=== PATIENT | female | born 1975 | race Caucasian/White ===

== ENCOUNTER 2021-10-16 14:43 | Emergency (ER) | payer BC ==
--- NOTE | 2021-10-16 14:44 | EDM.PDOC ---
ED HPI GENERAL MEDICAL PROBLEM - General Stated Complaint: LEFT SIDE NUMB AND TINGLING/CHEST PAIN Time Seen by Provider: 10/16/21 14:44 Source of Information: Reports: Patient History Limitations: Reports: No Limitations - History of Present Illness INITIAL COMMENTS - FREE TEXT/NARRATIVE: 46-year-old female no relevant past medical history presents for chest pain. Patient states that she was in normal state of health until around 1 hour prior to arrival when she experienced a sudden onset left-sided chest pain radiating to her left middle/upper back. Pain does seem to be worse with deep inspirati on. It is associated with shortness of breath and some anxiety. Patient notes history of anxiety but notes that this feels different. She denies any cough or fevers. She denies any lower extremity pain or swelling. No history of cardiac pathology nor blood clots in the legs or lungs. Left Chest Pain Score (Numeric/FACES): 8 - Related Data Allergies Allergy/AdvReac Type Severity Reaction Status Date / Time No Known Allergies Allergy Verified 10/16/21 15:03 Home Meds: Home Meds . [No Known Home Meds] 10/16/21 [History] ED ROS GENERAL - Review of Systems Review Of Systems: Comprehensive ROS is negative, except as noted in HPI. ED EXAM, GENERAL - Physical Exam Exam: See Below Exam Limited By: No Limitations General Appearance: Alert, WD/WN, No Apparent Distress, Anxious Ears: Hearing Grossly Normal Throat/Mouth: Normal Voice, No Airway Compromise Head: Atraumatic, Normocephalic Respiratory/Chest: No Respiratory Distress, Lungs Clear, Normal Breath Sounds, No Accessory Muscle Use Cardiovascular: Normal Peripheral Pulses, Regular Rate, Rhythm, No Edema GI/Abdominal: Soft, Non-Tender Extremities: Normal Inspection Neurological: Alert, Normal Cognition, Normal Gait Psychiatric: Normal Affect, Normal Mood Skin Exam: Warm, Dry, Intact, Normal Color #1 Interpretation EKG Date: 10/16/21 Time: 14:45 Rhythm: NSR Rate (Beats/Min): 106 [place]: Normal P-Wave: Present QRS: Normal ST-T: Normal QT: Normal AL/PQ Interval: 144 Comparison: NA - No Prior EKG EKG Interpretation Comments: sinus tach, otherwise unremarkable Course - Vital Signs Last Recorded V/S: Last Vital Signs Temp 97.6 F 10/16/21 15:03 Pulse 87 10/16/21 16:30 Resp 16 10/16/21 16:30 BP 134/87 10/16/21 16:30 Pulse Ox 99 10/16/21 16:30 - Orders/Labs/Meds Orders: Active Orders 24 hr Category Date Time Status Cardiac Monitoring [RC] . DIRECTED Care 10/16/21 14:54 Active Saline Lock Insert [OM.PC] Stat Oth 10/16/21 14:54 Ordered Labs: Laboratory Tests 10/16/21 10/16/21 10/16/21 Range/Units 14:52 14:52 14:52 WBC 10.50 (4.0-11.0) K/uL RBC 4.78 (4.30-5.90) M/uL Hgb 15.5 (12.0-16.0) g/dL Hct 45.3 (36.0-46.0) % MCV 94.8 (80.0-98.0) fL MCH 32.4 H (27.0-32.0) pg MCHC 34.2 (31.0-37.0) g/dL RDW Std Deviation 42.9 (28.0-62.0) fl RDW Coeff of [place] 12 (11.0-15.0) % Plt Count 398 (150-400) K/uL MPV 10.50 (7.40-12.00) fL Neut % (Auto) 71.5 (48.0-80.0) % Lymph % (Auto) 20.4 (16.0-40.0) % [place] % (Auto) 7.6 (0.0-15.0) % Eos % (Auto) 0.3 (0.0-7.0) % Baso % (Auto) 0.2 (0.0-1.5) % Neut # (Auto) 7.5 H (1.4-5.7) K/uL Lymph # (Auto) 2.1 (0.6-2.4) K/uL [place] # (Auto) 0.8 (0.0-0.8) K/uL Eos # (Auto) 0.0 (0.0-0.7) K/uL Baso # (Auto) 0.0 (0.0-0.1) K/uL Nucleated RBC % 0.0 /100WBC Nucleated RBCs # 0 K/uL INR 0.92 APTT 24.3 (18.6-31.3) SEC D-Dimer, Quantitative 0.22 (0.0-0.50) mg/L FEU Sodium 138 (136-145) mmol/L Potassium 3.7 (3.5-5.1) mmol/L Chloride 99 (98-107) mmol/L Carbon Dioxide 26.9 (21.0-32.0) mmol/L BUN 9 (7.0-18.0) mg/dL Creatinine 0.7 (0.6-1.0) mg/dL Est Cr Clr Drug Dosing TNP Estimated GFR (MDRD) > 60.0 ml/min Glucose 128 H (74-106) mg/dL Calcium 9.6 (8.5-10.1) mg/dL Troponin I < 0.050 (0.000-0.056) ng/mL TSH, Ultra Sensitive 1.67 (0.36-3.74) uIU/mL SARS-CoV-2 RNA (JUAN) (NEGATIVE) 10/16/21 10/16/21 Range/Units 15:19 17:50 WBC (4.0-11.0) K/uL RBC (4.30-5.90) M/uL Hgb (12.0-16.0) g/dL Hct (36.0-46.0) % MCV (80.0-98.0) fL MCH (27.0-32.0) pg MCHC (31.0-37.0) g/dL RDW Std Deviation (28.0-62.0) fl RDW Coeff of [place] (11.0-15.0) % Plt Count (150-400) K/uL MPV (7.40-12.00) fL Neut % (Auto) (48.0-80.0) % Lymph % (Auto) (16.0-40.0) % [place] % (Auto) (0.0-15.0) % Eos % (Auto) (0.0-7.0) % Baso % (Auto) (0.0-1.5) % Neut # (Auto) (1.4-5.7) K/uL Lymph # (Auto) (0.6-2.4) K/uL [place] # (Auto) (0.0-0.8) K/uL Eos # (Auto) (0.0-0.7) K/uL Baso # (Auto) (0.0-0.1) K/uL Nucleated RBC % /100WBC Nucleated RBCs # K/uL INR APTT (18.6-31.3) SEC D-Dimer, Quantitative (0.0-0.50) mg/L FEU Sodium (136-145) mmol/L Potassium (3.5-5.1) mmol/L Chloride (98-107) mmol/L Carbon Dioxide (21.0-32.0) mmol/L BUN (7.0-18.0) mg/dL Creatinine (0.6-1.0) mg/dL Est Cr Clr Drug Dosing Estimated GFR (MDRD) ml/min Glucose (74-106) mg/dL Calcium (8.5-10.1) mg/dL Troponin I < 0.050 (0.000-0.056) ng/mL TSH, Ultra Sensitive (0.36-3.74) uIU/mL SARS-CoV-2 RNA (JUAN) NEGATIVE (NEGATIVE) Meds: Medications Discontinued Medications Generic Name Dose Route Start Last Admin Trade Name Freq PRN Reason Stop Dose Admin Aspirin 324 mg 10/16/21 14:54 10/16/21 15:17 Aspirin 81 Mg Tab.Chew PO 10/16/21 14:55 324 mg ONETIME ONE Administration Alum [place]/Mag [place]/Simeth XS 0 ml 10/16/21 16:34 10/16/21 16:42 15 ml/ Lidocaine HCl 5 ml PO 10/16/21 16:35 20 each ONETIME ONE Administration Sodium Chloride 1,000 mls @ 999 mls/hr 10/16/21 14:54 10/16/21 15:17 Normal Saline IV 10/16/21 15:54 999 mls/hr .Bolus ONE Administration Lorazepam 1 mg 10/16/21 14:54 10/16/21 15:18 Lorazepam 2 Mg/Ml Sdv IVPUSH 10/16/21 14:55 1 mg ONETIME ONE Administration - Re-Assessments/Exams Free Text/Narrative Re-Assessment/Exam: 10/16/21 14:58 Patient presents with sudden onset chest pain on the left side radiating to the back. Pain is pleuritic. Will get D-dimer to screen for pulmonary embolism. Will get troponin. EKG is nonischemic. Will give aspirin and Ativan while working up. 10/16/21 16:34 Labs including D-dimer and troponin are negative. Patient states that she feels a bit more mellow after the Ativan but she still experiencing the chest pain. Not 100% sure was causing this. We will trial a GI medication to see if it helps. Patient is low risk based on risk stratification heart score. If her repeat troponin is negative I do believe that she is stable for discharge home, however, given the diagnostic uncertainty I think will be very important for her to follow-up with cardiology and we will place her on the cardiology referral list. This was explained to patient at length and she agrees with plan. 10/16/21 18:41 Repeat troponin is negative. Will discharge patient with cardiology follow-up Departure - Departure Time of Disposition: 18:41 Disposition: Home, Self-Care 01 Condition: Good Clinical Impression: Chest pain Qualifiers: Chest pain type: unspecified Qualified Code(s): R07.9 - Chest pain, unspecified - Discharge Information Instructions: Nonspecific Chest Pain, Adult Referrals: PCP,None [Primary Care Provider] - Additional Instructions: Your emergency department work-up for chest pain was unremarkable. We could not elucidate an etiology of your pain. For this reason it will be very important for you to follow-up with either your primary care physician or production miner to consider further work-up including cardiac stress testing. If your chest pain worsens or you are having difficulty breathing then you should come back to the emergency department for reassessment. You have been placed in our cardiology follow-up list. Their information is provided below. You will need to call and make an appointment, however, they should be expecting your phone call as we have faxed a visit summary of today's visit to their office. [facility] [address] [place] [phone] The following information is given to patients seen in the emergency department who are being discharged to home. This information is to outline your options for follow-up care. We provide all patients seen in our emergency department with a follow-up referral. The need for follow-up, as well as the timing and circumstances, are variable depending upon the specifics of your emergency department visit. If you don't have a primary care physician on staff, we will provide you with a referral. We always advise you to contact your personal physician following an emergency department visit to inform them of the circumstance of the visit and for follow-up with them and/or the need for any referrals to a consulting specialist. The emergency department will also refer you to a specialist when appropriate. This referral assures that you have the opportunity for follow-up care with a specialist. All of these measure are taken in an effort to provide you with optimal care, which includes your follow-up. Under all circumstances we always encourage you to contact your private physician who remains a resource for coordinating your care. When calling for follow-up care, please make the office aware that this follow-up is from your recent emergency room visit. If for any reason you are refused follow-up, please contact the [facility] Emergency Department at and asked to speak to the emergency department charge nurse. Please follow up with your primary care physician. If you do not have a primary care physician, see below: [facility] [address] [place] [address] [phone] [facility] [address] [place] [id number] [facility] [address] [place] [id number] Sepsis Event Note (ED) - Focused Exam Vital Signs: Vital Signs Temp Pulse Resp BP Pulse Ox 10/16/21 16:30 87 16 134/87 99 10/16/21 15:03 97.6 F 101 H 17 164/92 H 100 - My Orders Last 24 Hours: My Active Orders 10/16/21 14:54 Cardiac Monitoring [RC] . DIRECTED Saline Lock Insert [OM.PC] Stat - Assessment/Plan Last 24 Hours: My Active Orders 10/16/21 14:54 Cardiac Monitoring [RC] . DIRECTED Saline Lock Insert [OM.PC] Stat
[2021-10-16] MEDS ORDERED: Sodium Chloride 0.9% 1,000 ML IV ONE (14:54)
[2021-10-16] MEDS ORDERED: LORazepam 2 MG/ML SDV IVPUSH ONE (14:54)
[2021-10-16] MEDS ORDERED: Aspirin 81 MG Tab.Chew PO ONE (14:54)
[2021-10-16 15:26] LABS: BLOOD UREA NITROGEN,BUN 9 mg/dL (7.0-18.0); CARBON DIOXIDE,CO2 26.9 mmol/L (21.0-32.0); CHLORIDE,CL 99 mmol/L (98-107); GLUCOSE RANDOM 128 mg/dL (74-106); POTASSIUM,K 3.7 mmol/L (3.5-5.1); SODIUM,NA 138 mmol/L (136-145)
--- NOTE | 2021-10-16 15:55 | CR ---
INDICATION: Chest pain TECHNIQUE: single view chest. FINDINGS: The lungs are clear. The heart, mediastinum and pulmonary vessels are of normal size. There is no evidence of pleural disease. IMPRESSION: Negative chest. Dictated by Shamika Huang MD @ 10/16/2021 3:54:19 PM (Electronically Signed)
[2021-10-16] MEDS ORDERED: Alum Hydro/Mag Hydro/Simeth XS 15 ML, Lidocaine 2% 5 ML PO ONE ×2 (16:34)
== END 2021-10-16 18:56 | disposition home or self-care (01) ==
LOC: MW.ED 14:43
DX: R07.9 Chest pain, unspecified (principal); R00.0 Tachycardia, unspecified; Z20.822 Contact with and (suspected) exposure to COVID-19
CPT/HCPCS: 36415; 71045; 80048; 84443; 84484; 85025; 85379; 85610; 85730; 87635; 93005; 96374; 99285; A9270; J2060; J7030; U0002